=== PATIENT | female | born 2000 | race African-American/Black ===

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

== ENCOUNTER 2025-04-03 11:19 | Emergency (ER) | payer OTHER, MEDICAID ==
[~2025-04-03] VITALS: Ht 177.8 cm; Wt 73.0 kg
[2025-04-03 11:24] VITALS: O2SAT 99
[2025-04-03 11:34] VITALS: BP 110/74; PULSE 81; RESP 16; TEMP 36.9; O2SAT 100
[2025-04-03] MEDS: BACITRACIN ZINC OINT UDPKT TOP ONE (12:45)
== END 2025-04-03 13:06 | disposition left against medical advice (07) ==
LOC: ER 11:19
DX: O99.512 Diseases of the respiratory system complicating pregnancy, second trimester (principal); Z11.3 Encounter for screening for infections with a predominantly sexual mode of transmission; Z3A.26 26 weeks gestation of pregnancy
CPT/HCPCS: 81025; 87491; 87591; 99283